=== PATIENT | female | born 1970 | race Caucasian/White ===

== ENCOUNTER 2016-11-23 08:35 | Emergency (ER) | payer OTHER ==
[~2016-11-23] VITALS: Ht 154.9 cm; Wt 74.6 kg
[~2016-11-23 08:35] MED LIST: ABILIFY5 MG PO; ACTOS30 MG PO; AVANDIA; BACTRIM,SEPT1 TABLET PO; BACTROBAN NASAL1 G1 BOTH NARES; BUTALBITAL-APA1 EACH PO; BYETTA10 MCG/0.0 SC; CYCLOBENZAPRINE10 MG PO; ESTRADIOL0.5 MG PO; FEOSOL325 MG PO; FLUOXETINE HCL20 MG PO; GLUCOPHAGE XR,500 MG PO; HIBICLENS118 ML TP; IRON45 MG PO; KEFLEX500 MG PO; LISINOPRIL5 MG PO; LOPID600 MG PO; Levaquin PO; MELOXICAM7.5 MG PO; METFORMIN HCL1000 M1 PO; OXYCODONE5 MG PO; PERCOCET 5/31 TABLET PO; PRAVACHOL40 MG PO; PREDNISONE20 MG PO; PROAIR HFA8.5 GM IH; PROPRANOLOL HCL10 MG PO; RANITIDINE HCL150 MG PO; TESSALON PERLE100 MG PO; TRILEPTAL300 MG PO; XANAX XR1 MG PO; XANAX0.5 MG PO; ZANTAC150 MG PO; ZOFRAN4 MG PO
[2016-11-23 09:18] LABS: HEMATOCRIT 43.4 % (36.0-46.0); MCH 31.3 PG (29.0-34.0); MCHC 36.9 G/DL (30.0-36.0); MCV 84.9 FL (83-99); MEAN PLAT.VOLUME 9.5 uM^3 (9.5-12.4); PLATELET COUNT 186 K/uL (156-360); RBC DIS.WIDTH-CV 12.5 % (11.8-14.6); RBC DIS.WIDTH-SD 37.7 % (39-53); RED BLOOD COUNT 5.11 M/uL (3.80-5.20); WHITE BLOOD COUNT 8.1 K/uL (4.1-10.2)
[2016-11-23 12:22] LABS: CHLORIDE 104 mEq/L (99-109); POTASSIUM 4.2 mEq/L (3.7-5.4); SODIUM 139 mEq/L (136-147)
[2016-11-23 12:23] LABS: GLUCOSE 338 mg/dL (70-99)
[2016-11-23 12:25] LABS: ANION GAP 12 MEQ/L (2-14)
[2016-11-23 12:27] LABS: GFR ESTIMATE (CALCULATED) > 59 mL/min/
[2016-11-23 12:28] LABS: UREA NITROGEN (BUN) 14 mg/dL (9-23)
[2016-11-23] MEDS ORDERED: CLINDAMYCIN HC300 MG PO (13:09)
[2016-11-23] MEDS ORDERED: PERCOCET 5/31 TABLET PO (13:09)
[2016-11-23 13:31] VITALS: BP 163/104
== END 2016-11-23 13:31 | disposition home or self-care (01) ==
LOC: EXP 08:35 → EME 08:35 → EXP 13:31
PROVIDERS: Nurse Practitioner Family
DX: K08.89 Other specified disorders of teeth and supporting structures (principal); K02.9 Dental caries, unspecified; K21.9 Gastro-esophageal reflux disease without esophagitis
CPT/HCPCS: 70486; 80048; 85027; 99281; 99285; J2270; J2405; J3010

== ENCOUNTER 2017-02-22 05:18 | Inpatient (IN) | payer OTHER ==
[~2017-02-22] VITALS: Ht 154.9 cm; Wt 72.5 kg
[~2017-02-22 05:18] MED LIST changes: +CLINDAMYCIN HC300 MG PO
[2017-02-22 06:00] LABS: HEMATOCRIT 46.1 % (36.0-46.0); MCHC 35.6 G/DL (30.0-36.0); MCV 87.1 FL (83-99); MEAN PLAT.VOLUME 9.5 uM^3 (9.5-12.4); PLATELET COUNT 206 K/uL (156-360); RBC DIS.WIDTH-CV 12.5 % (11.8-14.6); RBC DIS.WIDTH-SD 39.4 % (39-53); RED BLOOD COUNT 5.29 M/uL (3.80-5.20); WHITE BLOOD COUNT 9.3 K/uL (4.1-10.2)
[2017-02-22 06:08] LABS: CHLORIDE 106 mEq/L (99-109); SODIUM 140 mEq/L (136-147)
[2017-02-22 06:11] LABS: GLUCOSE 321 mg/dL (70-99)
[2017-02-22 06:12] LABS: ANION GAP 12 MEQ/L (2-14)
[2017-02-22 06:13] LABS: TOTAL BILIRUBIN 1.8 mg/dL (0.0-1.0)
[2017-02-22 06:14] LABS: ALKALINE PHOSPHATASE 118 IU/L (3-129); GFR ESTIMATE (CALCULATED) > 59 mL/min/
[2017-02-22 06:15] LABS: UREA NITROGEN (BUN) 18 mg/dL (9-23)
[2017-02-22 06:16] LABS: ADD MIUA? NO; BILIRUBIN NEGATIVE; BLOOD NEGATIVE; COLOR YELLOW ((YELLOW)); GLUCOSE (STRIP) >=500; KETONES 5; LEUKOCYTES NEGATIVE; NITRITE NEGATIVE; PROTEIN (STRIP) NEGATIVE; SPECIFIC GRAVITY 1.035 (1.000-1.030); UCUL ADDED? NO; UROBILINOGEN 0.2 MG/DL (0.2-1.0)
[2017-02-22 06:18] LABS: LIPASE 406 U/L (1.0-51.0)
[2017-02-22] MEDS ORDERED: NAPROSYN375 MG PO (06:49)
[2017-02-22] MEDS ORDERED: GABAPENTIN300 MG PO (06:50)
[2017-02-22] MEDS ORDERED: ACYCLOVIR400 MG PO (06:51)
[2017-02-22] MEDS ORDERED: SAM E PO (09:07)
[2017-02-22] MEDS ORDERED: METFORMIN HCL1000 MG PO (09:07)
[2017-02-22] MEDS ORDERED: ESTRADIOL1 MG PO (09:08)
[2017-02-22 09:34] LABS: POINT-OF-CARE METER ID UU13113702
[2017-02-22 10:04] LABS: HDL CHOLESTEROL 41 MG/DL (Desirable>=50); LDL CHOLESTEROL 128 mg/dL (Desirable<100); NON-HDL CHOLESTEROL 183 mg/dL (Desirable<160); TOTAL CHOLESTEROL 224 mg/dL (Desirable<200); TRIGLYCERIDES 273 MG/DL (Normal: <150)
[2017-02-22 10:52] LABS: Estimated Average Glucose 237 mg/dL (70-123); HEMOGLOBIN A1c (GLYCOHEMOGLOB) 9.9 % HGB (Below 5.7)
[2017-02-22 10:58] VITALS: BP 144/79
[2017-02-22 11:56] LABS: POINT-OF-CARE METER ID UU14149397
[2017-02-22 15:27] VITALS: BP 129/72
[2017-02-22 19:26] VITALS: BP 118/61
[2017-02-22 23:17] VITALS: BP 129/60
[2017-02-23 03:58] VITALS: BP 118/62
[2017-02-23 05:10] LABS: HEMATOCRIT 42.6 % (36.0-46.0); MCH 30.9 PG (29.0-34.0); MCHC 35.7 G/DL (30.0-36.0); MCV 86.6 FL (83-99); MEAN PLAT.VOLUME 9.5 uM^3 (9.5-12.4); PLATELET COUNT 183 K/uL (156-360); RBC DIS.WIDTH-CV 12.6 % (11.8-14.6); RBC DIS.WIDTH-SD 39.7 % (39-53); RED BLOOD COUNT 4.92 M/uL (3.80-5.20)
[2017-02-23 05:12] LABS: WHITE BLOOD COUNT 6.2 K/uL (4.1-10.2)
[2017-02-23 07:54] LABS: POINT-OF-CARE METER ID UU14188577
[2017-02-23 08:47] VITALS: BP 120/63
[2017-02-23 10:43] VITALS: BP 134/69
[2017-02-23 10:51] LABS: HBSG INDEX 0.23
[2017-02-23 10:52] LABS: ANTI-HEPATITIS A VIRUS (IGM) Nonreactive; HAV INDEX 0.11; HPCA INDEX 0.12
[2017-02-23 10:54] LABS: ANTI-HEPATITIS B CORE (IGM) Nonreactive
[2017-02-23 12:29] LABS: POINT-OF-CARE METER ID UU14188577
[2017-02-23 16:35] LABS: POINT-OF-CARE METER ID UU14188577
[2017-02-23 17:58] VITALS: BP 141/75
[2017-02-24 00:09] VITALS: BP 129/61
[2017-02-24 00:38] LABS: POINT-OF-CARE METER ID UU14188577
[2017-02-24 03:58] VITALS: BP 112/57
[2017-02-24 04:52] LABS: HEMATOCRIT 40.4 % (36.0-46.0); MCHC 35.9 G/DL (30.0-36.0); MCV 86.3 FL (83-99); MEAN PLAT.VOLUME 9.6 uM^3 (9.5-12.4); PLATELET COUNT 177 K/uL (156-360); RBC DIS.WIDTH-CV 12.4 % (11.8-14.6); RBC DIS.WIDTH-SD 38.8 % (39-53); RED BLOOD COUNT 4.68 M/uL (3.80-5.20); WHITE BLOOD COUNT 5.3 K/uL (4.1-10.2)
[2017-02-24 05:09] LABS: CHLORIDE 106 mEq/L (99-109); POTASSIUM 3.2 mEq/L (3.7-5.4); SODIUM 139 mEq/L (136-147)
[2017-02-24 05:11] LABS: GLUCOSE 227 mg/dL (70-99)
[2017-02-24 05:12] LABS: ANION GAP 8 MEQ/L (2-14)
[2017-02-24 05:15] LABS: GFR ESTIMATE (CALCULATED) > 59 mL/min/
[2017-02-24 05:16] LABS: UREA NITROGEN (BUN) 6 mg/dL (9-23)
[2017-02-24 05:18] LABS: LIPASE 11 U/L (1.0-51.0)
[2017-02-24 07:58] VITALS: BP 127/64
[2017-02-24 12:08] LABS: POINT-OF-CARE METER ID UU14188577
[2017-02-24] MEDS ORDERED: PRAVASTATIN SOD10 MG PO (14:23)
== END 2017-02-24 15:57 | disposition home or self-care (01) | DRG 440 ==
LOC: EME 05:18 → 3EAST 08:32 → EDOF 08:32 → 3EAST 10:53
PROVIDERS: Emergency Medicine; Hospitalist; Internal Medicine; Physician Assistant
DX: K85.90 Acute pancreatitis without necrosis or infection, unspecified (principal); E11.65 Type 2 diabetes mellitus with hyperglycemia; K76.0 Fatty (change of) liver, not elsewhere classified; D18.03 Hemangioma of intra-abdominal structures; K21.9 Gastro-esophageal reflux disease without esophagitis; E78.5 Hyperlipidemia, unspecified; Z79.84 Long term (current) use of oral hypoglycemic drugs
CPT/HCPCS: 71020; 74177; 74183; 80048; 80053; 80061; 80074; 81003; 82948; 83036; 83690; 85027; 85651; 93005; 99281; 99285; J1170; J1650; J1815; J2270; J2405; J7030; J7042; S0028

== ENCOUNTER → 2017-07-18 | Outpatient (CLI) | payer OTHER ==
[~2017-07-18] MED LIST changes: +ACYCLOVIR400 MG PO; +ESTRADIOL1 MG PO; +GABAPENTIN300 MG PO; +METFORMIN HCL1000 MG PO; +NAPROSYN375 MG PO; +PRAVASTATIN SOD10 MG PO; +SAM E PO
== END | disposition home or self-care (01) ==
LOC: NUC 08:16
DX: K31.84 Gastroparesis (principal); R12 Heartburn; R10.11 Right upper quadrant pain
CPT/HCPCS: 78264; A9541